=== PATIENT | male | born 1990 | race African-American/Black ===

== ENCOUNTER 2022-12-31 14:53 | Emergency (ER) | payer OTHER, SELFPAY ==
[2022-12-31] MEDS ORDERED: Boostrix 0.5 ML (Tdap) VIAL (>/=7 yrs of age) ONE (15:57)
== END 2022-12-31 16:11 | disposition home or self-care (01) ==
LOC: ERS 14:53
DX: S80.811A Abrasion, right lower leg, initial encounter (principal); Z23 Encounter for immunization; W54.8XXA Other contact with dog, initial encounter
CPT/HCPCS: 90471; 90715